=== PATIENT | male | born 1980 | race Two or more races ===

== ENCOUNTER 2018-01-26 19:48 | Emergency (ER) | payer OTHER ==
[2018-01-26 20:22] VITALS: BP 138/84; PULSE 97; RESP 18; TEMP 98.5; O2SAT 96
--- NOTE | 2018-01-26 21:00 | ED PDOC ---
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 Patient states he leaned up against the crates, primarily with his left arm, when he touched a sticky residue. Patient states when he got home from work he noticed the rash on the inner, upper part of both arms. Patient denies any fever, chills, nausea, vomiting, diarrhea, or any othr complaints. Past Medical History Reviewed: Historical Data, Nursing Documentation, Vital Signs Vital Signs: Last Vital Signs Temp 98.5 F 01/26/18 20:17 Pulse 97 H 01/26/18 20:17 Resp 18 01/26/18 20:17 BP 138/84 01/26/18 20:17 Pulse Ox 96 01/26/18 21:13 - Medical History PMH: No Chronic Diseases - Surgical History Surgical History: No Surg Hx - Family History Family History: States: No Known Family Hx - Home Medications Home Medications: Ambulatory Orders Medication Instructions Recorded Hydrocortisone 1% Cream [Cortizone 30 applic TOP BID #1 tube 01/26/18 1% Cream] - Allergies Allergies/Adverse Reactions: Allergies Allergy/AdvReac Type Severity Reaction Status Date / Time strawberry Allergy RASH Verified 01/26/18 20:22 Review of Systems ROS Statement: Except As Marked, All Systems Reviewed And Found Negative Constitutional: Negative for: Fever, Chills Cardiovascular: Negative for: Chest Pain Respiratory: Negative for: Cough, Shortness of Breath Gastrointestinal: Negative for: Nausea, Vomiting, Diarrhea Skin: Positive for: Rash (inner, upper part of both arms) Physical Exam - Reviewed Nursing Documentation Reviewed: Yes Vital Signs Reviewed: Yes - Physical Exam Appears: Positive for: Well, Non-toxic, No Acute Distress Head Exam: Positive for: ATRAUMATIC, NORMAL INSPECTION, NORMOCEPHALIC Skin: Positive for: Rash (errythemous rash bilateral medial arms; positive for papules; positive for blanching, linear pattern on left arm; well defined border ) Eye Exam: Positive for: Normal appearance ENT: Positive for: Normal ENT Inspection Neck: Positive for: Normal Cardiovascular/Chest: Negative for: Bradycardia, Tachycardia Respiratory: Negative for: Accessory Muscle Use, Respiratory Distress Gastrointestinal/Abdominal: Positive for: Normal Exam Back: Positive for: Normal Inspection Extremity: Positive for: Normal ROM Neurologic/Psych: Positive for: Alert, Oriented - ECG O2 Sat by Pulse Oximetry: 96 Medical Decision Making Medical Decision Makin01/26/2018 21:00 Impression: 37 year old male presents to the ED c/o a rash on the bilateral medial arms. Disposition - Clinical Impression Clinical Impression: Contact dermatitis - Patient ED Disposition Is Patient to be Admitted: No Counseled Patient/Family Regarding: Diagnosis, Need For Followup, Rx Given - Disposition Referrals: Chandler Brarera MD [Staff Provider] - Disposition: Routine/Home Disposition Time: 21:00 Condition: GOOD Prescriptions: Hydrocortisone 1% Cream [Cortizone 1% Cream] 30 applic TOP BID #1 tube Instructions: Contact Dermatitis (DC) Forms: [employer] (Dominican)
== END 2018-01-26 21:00 | disposition home or self-care (01) ==
LOC: H.ER 19:48
DX: L25.9 Unspecified contact dermatitis, unspecified cause (principal)